=== PATIENT | female | born 1985 | race Caucasian/White ===

== ENCOUNTER 2016-04-25 15:55 | Emergency (ER) | payer MEDICAID ==
[2016-04-25 17:00] LABS: BASOPHILS 0.2 % (0.0-2.0); EOSINOPHILS 2.7 % (0-7); HEMATOCRIT 39.1 % (36.0-48.0); HEMOGLOBIN 13.9 g/dL (12-16); IMMATURE GRANULOCYTES 0.2 % (0-5); LYMPHOCYTES 33.1 % (15-50); MCH 31.7 pg (26.0-34.0); MCHC 35.5 g/dL (31.0-37.0); MCV 89.1 fL (80.0-100.0); MEAN PLATELET VOLUME 8.9 fL (7.4-10.4); MONOCYTES 5.2 % (2-11); NEUTROPHILS 58.6 % (40-80); PLATELET COUNT 249 10x3/uL (130-400); RBC 4.39 10x6/uL (4.00-5.40); RDW 12.1 % (11.5-14.5); WBC 6.6 10x3/uL (4.8-10.8)
[2016-04-25 17:28] LABS: APPEARANCE CLEAR (CLEAR); BACTERIA FEW /hpf (NONE SEEN); BILIRUBIN NEGATIVE (NEGATIVE); COLOR YELLOW (YELLOW); EPITHELIAL CELLS 0-5 /hpf (0-5); GLUCOSE NEGATIVE (NEGATIVE); KETONE NEGATIVE (NEGATIVE); LEUKOCYTE ESTERASE TRACE (NEGATIVE); MUCUS <1+ /lpf (NONE SEEN); NITRITE NEGATIVE (NEGATIVE); PROTEIN NEGATIVE (NEGATIVE); RED CELLS - URINE OCC /hpf (0-5); SPECIFIC GRAVITY 1.015 (1.005-1.020); UROBILINOGEN NORMAL (NORMAL); WHITE CELLS - URINE OCC /hpf (0-5)
== END 2016-04-25 18:53 | disposition home or self-care (01) ==
LOC: D.ER 15:55
PROVIDERS: Family Medicine
DX: O20.0 Threatened abortion (principal); Z3A.00 Weeks of gestation of pregnancy not specified

== ENCOUNTER 2016-06-29 06:56 | Emergency (ER) | payer MEDICAID ==
[2016-06-29 07:28] LABS: BASOPHILS 0 % (0.0-2.0); EOSINOPHILS 2.6 % (0-7); HEMATOCRIT 38.6 % (36.0-48.0); HEMOGLOBIN 13.8 g/dL (12-16); IMMATURE GRANULOCYTES 0.2 % (0-5); LYMPHOCYTES 22.1 % (15-50); MCHC 35.8 g/dL (31.0-37.0); MCV 86.7 fL (80.0-100.0); MEAN PLATELET VOLUME 9.1 fL (7.4-10.4); MONOCYTES 4.8 % (2-11); NEUTROPHILS 70.3 % (40-80); PLATELET COUNT 213 10x3/uL (130-400); RBC 4.45 10x6/uL (4.00-5.40); RDW 12.5 % (11.5-14.5); WBC 5.8 10x3/uL (4.8-10.8)
[2016-06-29 07:46] LABS: HCG SERUM POSITIVE (NEGATIVE)
== END 2016-06-29 09:00 | disposition home or self-care (01) ==
LOC: D.ER 06:56
PROVIDERS: Emergency Medicine
DX: O03.9 Complete or unspecified spontaneous abortion without complication (principal); F17.200 Nicotine dependence, unspecified, uncomplicated

== ENCOUNTER 2017-10-16 02:22 | Emergency (ER) | payer MEDICAID ==
[~2017-10-16] VITALS: Ht 175.3 cm; Wt 109.1 kg
[2017-10-16 02:28] VITALS: Ht 175.3 cm; Wt 109.1 kg
[2017-10-16] MEDS ORDERED: DESERYL100 MG PO (02:29)
[2017-10-16] MEDS ORDERED: ZITHROMAX500 MG PO (04:26)
[2017-10-16] MEDS ORDERED: FLAGYL500 MG PO (04:26)
[2017-10-16 04:55] VITALS: BP 121/78
[2017-10-19 10:12] LABS: CHLAMYDIA TRACHOMATIS, NAA Negative (Negative)
== END 2017-10-16 04:55 | disposition home or self-care (01) ==
LOC: D.ER 02:22
PROVIDERS: Family Medicine
DX: Z20.2 Contact with and (suspected) exposure to infections with a predominantly sexual mode of transmission (principal); F17.200 Nicotine dependence, unspecified, uncomplicated